=== PATIENT | male | born 2000 | race African-American/Black ===

== ENCOUNTER 2022-01-05 15:10 | Emergency (ER) | payer OTHER, SELFPAY ==
[2022-01-05 15:35] VITALS: BP 151/90; PULSE 100; RESP 18; TEMP 36.4; O2SAT 99
--- NOTE | 2022-01-05 19:35 | ED.SKABFB ---
HPI - Skin/Abscess/Foreign Bdy General Chief complaint: Skin/Abscess/Foreign Body Stated complaint: ingrown hair? Time Seen by Provider: 01/05/22 19:03 History of Present Illness HPI narrative: This is a 21-year-old male who denies past medical history, presenting to the emergency department with a painful growing mass of the abdominal wall for the past week. He states he believes it began with an ingrown hair that has since enlarged. He states the surroundings skin feels warm. He denies fevers, chills, abdominal pain, nausea or vomiting. He has no other complaints today. Related Data Allergies Allergy/AdvReac Type Severity Reaction Status Date / Time No Known Allergies Allergy Verified 01/05/22 20:35 Review of Systems Review of Systems: CONSTITUTIONAL: Denies fever, chills, or sweats. EYES: Denies visual changes, redness, or discharge. ENT: Denies rhinorrhea, congestion, sore throat, or otalgia. CARDIOVASCULAR: Denies chest pain, palpitations, or edema. RESPIRATORY: Denies cough or dyspnea. GASTROINTESTINAL: Denies abdominal pain, nausea, vomiting, or diarrhea. GENITOURINARY: Denies dysuria or hematuria. SKIN: Possible ingrown hair with swelling denies rash or itching. MUSCULOSKELETAL: Denies back pain, joint pain, or myalgia. NEUROLOGIC: Denies headache, numbness, dizziness, or weakness. PSYCHIATRIC: Denies anxiety or depression. [facility] Social History Social History (Updated 01/05/22 @ 19:36 by Reginaldo Figueroa MD) Smoking status: Never smoker Alcohol intake: never Substance use: current Substance use type: marijuana Exam Narrative: GENERAL: Well-developed, well-nourished, and in no acute distress. HEAD: Normocephalic, atraumatic. EYES: PERRLA and EOMI. ENT: Nares clear, no rhinorrhea or epistaxis. Mucous membranes moist. Oropharynx without tonsillar hypertrophy exudate or other lesions. NECK: Supple. No adenopathy or masses. No carotid bruits or JVD CHEST: Clear to auscultation. No respiratory distress. No wheezes rales or rhonchi HEART: Regular rate and rhythm. No murmur heard. Normal peripheral pulses. ABDOMEN: Soft, nontender, nondistended, normal active bowel sounds. EXTREMITIES: Normal range of motion. No edema. SKIN: A tender, fluctuant, indurated mass is noted to the skin of the right lower abdominal wall consistent with abscess; otherwise skin warm, dry, no rash. NEURO: No focal deficits. Alert and oriented x3. PSYCH: Normal mood and affect. Course Course Emergency Course: 20:33 - Bedside I&D performed on abscess of the right lower abdominal wall. The patient tolerated the procedure well. Please see procedure note. Will discharge with iodoform packing and recommendation to follow-up with primary care doctor. Discussed return emergency precautions including signs/symptoms of intra-abdominal infection and failed drainage. The patient voiced understanding and is comfortable to plan. All questions answered to his satisfaction. Vital Signs Vital signs: Vital Signs Temperature 97.6 F 01/05/22 15:35 Pulse Rate 100 01/05/22 15:35 Respiratory Rate 18 01/05/22 15:35 Blood Pressure 151/90 H 01/05/22 15:35 Pulse Oximetry 99 01/05/22 15:35 Oxygen Delivery Room Air 01/05/22 15:35 Temperature 97.6 F 01/05/22 15:35 Pulse Rate 100 01/05/22 15:35 Respiratory Rate 18 01/05/22 15:35 Blood Pressure 151/90 H 01/05/22 15:35 Pulse Oximetry 99 01/05/22 15:35 Oxygen Delivery Room Air 01/05/22 15:35 Procedures Abscess I/D abdomen: Date of Incision: 01/05/22 Time of Incision: 20:20 Side (if applicable): right Sedation/analgesia: none Local Anesthetic: lidocaine 1% and with epi Amount of anesthesia used (mL): 25 Technique: incised with #11 blade and probed loculations Amount of fluid expressed (mL): 5 Packing used?: iodoform I&D Results: Pus and Blood Complications: pain Abcess I&D Radhames
== END 2022-01-05 21:04 | disposition home or self-care (01) ==
PROVIDERS: Emergency Provider Preventive Medicine Aerospace Medicine
DX: L02.211 Cutaneous abscess of abdominal wall (principal)
CPT/HCPCS: 10061; 99283